=== PATIENT | female | born 1955 | race Asian ===

== ENCOUNTER 2024-12-03 06:33 | Inpatient (IN) | payer MEDICAID, OTHER ==
[~2024-12-03] VITALS: Ht 152.4 cm; Wt 51.1 kg
--- NOTE | 2024-12-03 07:28 | ED.PDOC ---
General HPI Comments 69 y/o F, with PMHx of kidney stones presents to the ED for CC of flank pain. Patient reports, she has been experiencing right sided flank pain with associated nausea and vomiting onset, this morning (12/03/24). Patient denies dysuria, hematuria, fever, chills, or urinary frequency. No other symptoms or modifying factors present at this time. Chief Complaint: Flank Pain Time Seen by MD: 07:30 Reviewed notes: Nurses Notes, Medications, Allergies Information Source: Patient Mode of Arrival: Ambulatory Severity: Moderate Inability to void: None Timing: Hours Duration: Since onset Prehospital treatment: None Onset: Spontaneous Symptoms: None History of: Kidney stone Location: (R) Flank Modifying factors: None associated signs and symptoms: Nausea, Vomiting, Flank Pain Past Medical History PAST MEDICAL HISTORY: Kidney Stones Surgical History: Denies all surgeries FRAME TRIMMER History: Denies all FRAME TRIMMER Hx Family History Family History: Unknown Social History Smoker: Non-Smoker Alcohol: Denies ETOH Use Drugs: Denies Drug Use Lives In: Home Constitutional: denies: chills, diaphoresis, fatigue, fever, malaise, sweats, weakness, others EENTM: denies: blurred vision, double vision, ear bleeding, ear discharge, ear drainage, ear pain, ear ringing, eye pain, eye redness, hearing loss, mouth pain, mouth swelling, nasal discharge, nose bleeding, nose congestion, nose pain, photophobia, tearing, throat pain, throat swelling, voice changes, others Respiratory: denies: cough, hemoptysis, orthopnea, SOB at rest, shortness of breath, SOB with excertion, stridor, wheezing, others Cardiovascular: denies: chest pain, dizzy spells, diaphoresis, Dyspnea on exertion, edema, irregular heart beat, left arm pain, lightheadedness, palpitations, PND, syncope, others Gastrointestinal: reports: nausea, vomiting; denies: abdomen distended, abdominal pain, blood streaked bowels, constipated, diarrhea, dysphagia, difficulty swallowing, hematemesis, melena, poor appetite, poor fluid intake, rectal bleeding, rectal pain, others Genitourinary: reports: flank pain; denies: abnormal vagina bleeding, burning, dyspareunia, dysuria, frequency, hematuria, incontinence, pain, , vagina discharge, urgency, others Neurological: denies: dizziness, fainting, headache, left sided numbness, left sided weakness, numbness, paresthesia, pre-existing deficit, right sided numbness, right sided weakness, seizure, speech problems, tingling, tremors, weakness, others Musculoskeletal: denies: back pain, gout, joint pain, joint swelling, muscle pain, muscle stiffness, neck pain, others Integumetry: denies: bruises, change in color, change in hair/nails, dryness, laceration, lesions, lumps, rash, wounds, others Allergic/Immunocompromised: denies: Difficulty Healing, Frequent Infections, Hives, Itching, others Hematologic/Lymphatic: denies: anemia, blood clots, easy bleeding, easy bruising, swollen glands, others Endocrine: denies: excessive hunger, excessive sweating, excessive thirst, excessive urination, flushing, intolerance to cold, intolerance to heat, unexplained weight gain, unexplained weight loss, others Psychiatric: denies: anxiety, bipolar disorder, depression, hopeless, panic disorder, schizophrenia, sleepless, suicidal, others All Other Systems: Reviewed and Negative Physical Exam General Appearance: Moderate Distress, Normal, Other (appears uncomfortable) HEENT: Normal ENT Inspection, Pharynx Normal Neck: Full Range of Motion, Non-Tender, Normal, Normal Inspection Respiratory: Chest Non-Tender, Lungs Clear, No Accessory Muscle Use, No Respiratory Distress, Normal Breath Sounds Cardiovascular: No Edema, No Murmur, No Gallop, Normal Peripheral Pulses, Regular Rate/Rhythm Breast Exam: Deferred Gastrointestinal: No Organomegaly, Non Tender, No Pulsatile Mass, Normal Bowel Sounds, Soft Genitalia: Deferred Pelvic: Deferred Rectal: Deferred Extremities: No calf tenderness, Normal capillary refill, Normal inspection, Normal range of motion, Non-tender, No pedal edema Musculoskeletal : Apperance: Normal Neurologic: Alert, route delivery manager II-XII nml as Tested, No Motor Deficits, Normal Affect, Normal Mood, No Sensory Deficits Cerebellar Function: Normal Reflexes: Normal Skin: Dry, Normal Color, Warm Lymphatic: No Adenopathy Was a procedure done? Was a procedure done?: No Differential Diagnosis Kidney stone (Female): Pyelonephritis, Urinary obstruction, Urolithiasis Kidney stone (Male): N/A Penile/Scrotal: N/A Urinary Problem (Male): N/A Urinary Problem (Female): UTI X-Ray, Labs, Meds, VS Vital Signs Date Time Temp Pulse Resp B/P (MAP) Pulse Ox O2 Delivery O2 Flow Rate FiO2 12/03/24 08:05 53 18 115/63 12/03/24 08:03 97.5 53 17 115/63 (80) 100 97.5 12/03/24 08:03 53 17 100 Room Air* 0 21 12/03/24 06:35 97.6 72 16 127/68 97 97.6 Lab Test 12/03/24 08:14 12/03/24 07:19 Range/Units Urine Color Light-yellow Yellow Urine Clarity Clear Clear Urine pH 5.0 5.0-9.0 Urine Specific [place] 1.019 1.001-1.035 Urine Protein Negative Negative Urine Ketones Negative Negative Urine Blood 2+ H Negative /uL Urine Nitrite Negative Negative Urine Bilirubin Negative Negative Urine Urobilinogen Normal Negative mg/dL Urine Leukocyte Esterase Trace Negative /uL Urine RBC 55 0 - 4 /hpf Urine Microscopic WBC 6 H 0-5 /HPF Urine Squamous Epithelial Cells Few <5 /hpf Urine Bacteria None seen None Seen /hpf Urine Mucus Few None Seen Urine Glucose Normal Normal mg/dL White Blood Count 6.3 4.4-10.8 10^3/uL Red Blood Count 4.16 4.0-5.20 10^6/uL Hemoglobin 12.5 12.2-16.2 g/dL Hematocrit 36.7 36.0-46.0 % Mean Corpuscular Volume 88.1 80.0-100.0 fL Mean Corpuscular Hemoglobin 29.9 28.0-32.0 pg Mean Corpuscular Hemoglobin Concent 34.0 32.0-36.0 g/dL Red Cell Distribution Width 12.9 11.8-14.3 % Platelet Count 169 140-450 10^3/uL Mean Platelet Volume 7.4 6.9-10.8 fL Neutrophils (%) (Auto) 73.2 37.0-80.0 % Lymphocytes (%) (Auto) 20.9 10.0-50.0 % Monocytes (%) (Auto) 4.6 0.0-12.0 % Eosinophils (%) (Auto) 0.8 0.0-7.0 % Basophils (%) (Auto) 0.5 0.0-2.0 % Neutrophils # (Auto) 4.6 1.6-8.6 10 ^3/uL Lymphocytes # (Auto) 1.3 0.4-5.4 10 ^3/uL Monocytes # (Auto) 0.3 0-1.3 10 ^3/uL Eosinophils # (Auto) 0.1 0-0.8 10 ^3/uL Basophils # (Auto) 0 0-0.2 10 ^3/uL Nucleated Red Blood Cells 0.0 % Sodium Level 144 136-145 mmol/L Potassium Level 3.7 3.5-5.1 mmol/L Chloride Level 109 H 98-107 mmol/L Carbon Dioxide Level 26 20-31 mmol/L Anion Gap 9 5-15 Blood Urea Nitrogen 15 9-23 mg/dL Creatinine 0.79 0.550-1.02 mg/dL Glomerular Filtration Rate Calc 82 >90 mL/min BUN/Creatinine Ratio 19.0 10.0-20.0 Serum Glucose 143 H 74-106 mg/dL Calcium Level 9.0 8.7-10.4 mg/dL Current Medications Medications (Trade) Dose Ordered Sig/Rico Route Start Time Stop Time Status Last Admin Sodium Chloride 1,000 ml @ 1,000 mls/hr Q1H ONCE IV 12/03/24 07:30 12/03/24 08:29 DC 12/03/24 08:03 Morphine Sulfate 4 mg ONCE ONCE IV 12/03/24 07:30 12/03/24 07:31 DC 12/03/24 08:05 Ondansetron HCl (Zofran) 4 mg ONCE ONCE IV 12/03/24 07:30 12/03/24 07:31 DC 12/03/24 08:05 Time of 1ST Reevaluation: 08:00 Reevaluation 1ST: Unchanged Patient Education/Counseling: Diagnosis, Treatment Family Education/Counseling: No Family Present SEPSIS Sepsis Screen Date sepsis recognized/suspect: Dec 03, 2024 Time Sepsis recognized/suspect: 0637 Recent Procedure: No On Antibiotic Therapy: No Respiratory Rate >20: No Heart Rate >90: No Temp<36 C (96.8 F) or >38.3 C: No SBP <90 or MAP <65 mmHG: No New Acute Mental Status Change: No Is the patient on CPAP, BIPAP,: No Physician Orders Ct Ab Pel Wo Con-No Oral Or Iv (12/03/24 10:09) Vital Signs Date Time Temp Pulse Resp B/P (MAP) Pulse Ox O2 Delivery O2 Flow Rate FiO2 12/03/24 08:05 53 18 115/63 12/03/24 08:03 97.5 53 17 115/63 (80) 100 97.5 12/03/24 08:03 53 17 100 Room Air* 0 21 12/03/24 06:35 97.6 72 16 127/68 97 97.6 Laboratory Tests Test 12/03/24 07:19 White Blood Count 6.3 10^3/uL (4.4-10.8) Medications Medications Dose Ordered Sig/Rico Route Start Time Stop Time Status Last Admin Dose Admin Morphine Sulfate 4 mg ONCE ONCE IV 12/03/24 07:30 12/03/24 07:31 DC 12/03/24 08:05 Ondansetron HCl 4 mg ONCE ONCE IV 12/03/24 07:30 12/03/24 07:31 DC 12/03/24 08:05 Sodium Chloride 1,000 ml @ 1,000 mls/hr Q1H ONCE IV 12/03/24 07:30 12/03/24 08:29 DC 12/03/24 08:03 Departure 1 Departure Time of Disposition: 11:29 (Patient presented with abdominal pain that was concerning for possible appendicits, gastritis, cholecystitis, colitis, gastroenteritis, sbo, or orther possible surgical emergency. Data: 1. I ordered and reviewed the result of at least 3 labs including a CBC, BMP, and Urinalysis. 2. I independently interpreted the following tests: CT Abdoment and Pelvis is concerning for renal colic .Risk:This patient has a high risk of morbidity due to further diagnostic testing or treatment and may suffer from an acute abdominal process disorder. Workup reveals renal colic and intractable abdominal pain and patient should be admitted for further workup. and possible expert consultation. ) Impression: Primary Impression: Renal colic Additional Impression: Intractable abdominal pain Disposition: ADMITTED INPATIENT Admit to: Med Surg Condition: Serious Critical Care Note Critical Care Time?: Yes Critical care comment: Intractable abdominal pain Authorized and Performed by: Marshall Talavera MD Total critical care time: Approximately 38 minutes Due to a high probability of clinically significant, life threatening deterioration, the patient required my highest level of preparedness to intervene emergently and I personally spent this critical care time directly and personally managing the patient. This critical care time included obtaining a history; examining the patient; pulse oximetry; ordering and review of studies; arranging urgent treatment with development of a management plan; evaluation of patient's response to treatment; frequent reassessment; and, discussions with other providers. This critical care time was performed to assess and manage the high probability of imminent, life-threatening deterioration that could result in multi-organ failure. It was exclusive of separately billable procedures and treating other patients and teaching time. Please see my other sections and the rest of the note for further information on patient assessment and treatment. Stability Stability form required: No Heart Score Heart Score: Heart Score Response (Comments) Value History N/A 0 EKG N/A 0 Age N/A 0 Risk Factors N/A 0 Troponin N/A 0 Total 0 I personally scribed for MARSHALL TALAVERA MD ([email or web address]) on 12/03/24 at 07:28. Electronically submitted by Alina Del Castillo ([email or web address]). MARSHALL TALAVERA MD Dec 03, 2024 07:28
[2024-12-03 07:34] LABS: Hematocrit 36.7 % (36.0-46.0); Hemoglobin 12.5 g/dL (12.2-16.2); Mean Corpuscular Hemoglobin 29.9 pg (28.0-32.0); Mean Corpuscular Volume 88.1 fL (80.0-100.0); Nucleated Red Blood Cells % 0.0 %
[2024-12-03 07:43] LABS: Potassium 3.7 mmol/L (3.5-5.1); Sodium 144 mmol/L (136-145)
[2024-12-03 07:44] LABS: Anion Gap 9 (5-15); Carbon Dioxide 26 mmol/L (20-31)
[2024-12-03 07:45] LABS: Calcium 9.0 mg/dL (8.7-10.4)
[2024-12-03 07:49] LABS: BUN/Creatinine Ratio 19.0 (10.0-20.0); Blood Urea Nitrogen 15 mg/dL (9-23)
[2024-12-03 07:51] LABS: Chloride 109 mmol/L (98-107); Glucose 143 mg/dL (74-106)
[2024-12-03 08:03] VITALS: PULSE 53; RESP 17; O2SAT 100
[2024-12-03] MEDS: SODIUM CHLORIDE 0.9% 1,000 ML IV ONE (08:03)
[2024-12-03] MEDS: MORPHINE SULFATE 4 MG/ML SYR/VIAL IV ONE (08:05)
[2024-12-03] MEDS: ONDANSETRON HCL 4 MG/2 ML VIAL IV ONE (08:05)
[2024-12-03 09:20] LABS: Urine Protein, UAD Negative (Negative)
--- NOTE | 2024-12-03 11:21 | DVH ---
CT CT AB PEL WO CON-NO ORAL OR IV INDICATION: abdominal pain, hematuria EXAM DATE: 12/03/2024 10:12 AM COMPARISON: None RADIATION DOSE: CTDIvol: 7.14 mGy, DLP: 392.06 mGy*cm PROCEDURE: Helical CT images were obtained of the abdomen and pelvis without IV contrast Sagittal and coronal reconstructions are provided. ORAL CONTRAST: None. ADDITIONAL IMAGES / REFORMATS: None All C T scans at this medical facility are performed using dose modulation techniques as appropriate to a p erformed exam including the following: Automated exposure control was utilized; adjustment of the MA and/or KV according to patient size; and use of iterative reconstruction technique. FINDINGS: LUNG BASE: Normal. LIVER: Normal. GALLBLADDER AND BILIARY TREE: No calcified gallstones. Normal caliber wall. No intra- or extrahepatic biliary ductal dilation. PANCREAS: Normal. SPLEEN: Normal. BOWEL: Normal. Normal appendix. ADRENALS: Normal. KIDNEYS AND URETER: 3 mm right UVJ stone with mild right hydronephrosis. BLADDER: Normal. REPRODUCTIVE ORGANS: Ring foreign body inside the uterus. LYMPH NODES:No lymphadenopathy. PERITONEUM: No ascites or free air. No other fluid collection. VESSELS: Scattered atherosclerotic calcifications are noted. RETROPERITONEUM: Normal. ABDOMINAL WALL: Normal. BONES: Scattered osseous degenerative changes are noted. IMPRESSION: 3 mm right UVJ stone with mild right hydronephrosis. Ring foreign body inside the uterus could be an IUD
[2024-12-03] MEDS ORDERED: KETOROLAC TROMETH 30 MG/ML 1ML VIAL IV ONE (11:30)
[2024-12-03] MEDS ORDERED: TAMSULOSIN HYDROCHLORIDE 0.4 MG CAP PO ONE (11:30)
[2024-12-03] MEDS ORDERED: HYDROcodone-ACET 5/325MG TAB PO PRN (12:30)
[2024-12-03] MEDS ORDERED: SODIUM CHLORIDE 0.9% 1,000 ML IV ONE (12:30)
[2024-12-03] MEDS ORDERED: ACETAMINOPHEN 325 MG TAB PO PRN (12:30)
[2024-12-03] MEDS ORDERED: ONDANSETRON HCL 4 MG/2 ML VIAL IV PRN (12:30)
[2024-12-03] MEDS ORDERED: KETOROLAC TROMETH 30 MG/ML 1ML VIAL IV PRN (12:30)
[2024-12-03] MEDS ORDERED: SODIUM CHLORIDE 0.9% 1,000 ML IV SCH (12:30)
[2024-12-03] MEDS ORDERED: DOCUSATE SOD 100 MG CAP PO PRN (12:30)
--- NOTE | 2024-12-03 12:43 | DVHHP2 ---
History of Present Illness Reason for Visit: Abdominal pain History of Present Illness Marcus Espinal is a 69-year-old female with no significant past medical history who came to the hospital with complaints of abdominal pain that radiates to her right flank. Patient states the pain began this morning about 0600 with associated nausea and vomiting. She states she had pain like this about 20 years ago. Past Surgical History: None Smoke: No ALCOHOL: none Drugs: None Lives: with Family Domestic Violence: Neg Review of Systems Constitutional: No: Fever, Chills, Sweats, Weakness, Malaise, Other Eyes: No: Pain, Vision change, Conjunctivae inflammation, Eyelid inflammation, Other, Redness ENT: No: Ear pain, Ear discharge, Nose pain, Nose discharge, Nose congestion, Mouth pain, Mouth swelling, Throat pain, Throat swelling, Other Respiratory: No: Cough, Dry, Shortness of breath, SOB with excertion, Wheezing, Hemoptysis, Pleuritic Pain, Sputum, Wheezing, Other Cardiovascular: No: Chest Pain, Palpitations, Orthopnea, Paroxysmal Noc. Dyspnea, Edema, Lt Headedness, Other Gastrointestinal: Nausea, Abdominal Pain; No: Vomiting, Diarrhea, Constipation, Melena, Hematochezia, Other Genitourinary: No Dysuria, No Frequency, No Incontinence, No Hematuria, No Retention, No Other Musculoskeletal: back pain (right flank); No: other, neck pain, shoulder pain, arm pain, hand pain, leg pain, foot pain Skin: No: Rash, Lesions, Jaundice, Bruising, Other Neurological: No: Weakness, Numbness, Incoordination, Change in speech, Confusion, Seizures, Other Allergies: Coded Allergies: No Known Drug Allergy (Verified Allergy, Unknown, 12/03/24) Exam Vital Signs Vital Signs Date Time Temp Pulse Resp B/P (MAP) Pulse Ox O2 Delivery O2 Flow Rate FiO2 12/03/24 08:05 53 18 115/63 12/03/24 08:03 97.5 100 97.5 12/03/24 08:03 Room Air* 0 21 General Appearance: Alert, Oriented X3, Cooperative, mild distress HEENT: Atraumatic, PERRLA Respiratory: Clear to auscultation, Normal air movement Cardiovascular: Regular rate, Normal S1, Normal S2, No murmurs Abdominal: Normal bowel sounds, Soft, No tenderness, No hepatospenomegaly Extremities: No clubbing, No cyanosis, No edema, Normal pulses Skin: No rashes, No breakdown, No significant lesion Neuro: Normal gait, Normal speech, Strength at 5/5 X4 ext Psych/Mental Status: Mental status NL, Mood NL Labs/Xrays Labs Test 12/03/24 08:14 12/03/24 07:19 Range/Units Urine Color Light-yellow Yellow Urine Clarity Clear Clear Urine pH 5.0 5.0-9.0 Urine Specific [place] 1.019 1.001-1.035 Urine Protein Negative Negative Urine Ketones Negative Negative Urine Blood 2+ H Negative /uL Urine Nitrite Negative Negative Urine Bilirubin Negative Negative Urine Urobilinogen Normal Negative mg/dL Urine Leukocyte Esterase Trace Negative /uL Urine RBC 55 0 - 4 /hpf Urine Microscopic WBC 6 H 0-5 /HPF Urine Squamous Epithelial Cells Few <5 /hpf Urine Bacteria None seen None Seen /hpf Urine Mucus Few None Seen Urine Glucose Normal Normal mg/dL White Blood Count 6.3 4.4-10.8 10^3/uL Red Blood Count 4.16 4.0-5.20 10^6/uL Hemoglobin 12.5 12.2-16.2 g/dL Hematocrit 36.7 36.0-46.0 % Mean Corpuscular Volume 88.1 80.0-100.0 fL Mean Corpuscular Hemoglobin 29.9 28.0-32.0 pg Mean Corpuscular Hemoglobin Concent 34.0 32.0-36.0 g/dL Red Cell Distribution Width 12.9 11.8-14.3 % Platelet Count 169 140-450 10^3/uL Mean Platelet Volume 7.4 6.9-10.8 fL Neutrophils (%) (Auto) 73.2 37.0-80.0 % Lymphocytes (%) (Auto) 20.9 10.0-50.0 % Monocytes (%) (Auto) 4.6 0.0-12.0 % Eosinophils (%) (Auto) 0.8 0.0-7.0 % Basophils (%) (Auto) 0.5 0.0-2.0 % Neutrophils # (Auto) 4.6 1.6-8.6 10 ^3/uL Lymphocytes # (Auto) 1.3 0.4-5.4 10 ^3/uL Monocytes # (Auto) 0.3 0-1.3 10 ^3/uL Eosinophils # (Auto) 0.1 0-0.8 10 ^3/uL Basophils # (Auto) 0 0-0.2 10 ^3/uL Nucleated Red Blood Cells 0.0 % Sodium Level 144 136-145 mmol/L Potassium Level 3.7 3.5-5.1 mmol/L Chloride Level 109 H 98-107 mmol/L Carbon Dioxide Level 26 20-31 mmol/L Anion Gap 9 5-15 Blood Urea Nitrogen 15 9-23 mg/dL Creatinine 0.79 0.550-1.02 mg/dL Glomerular Filtration Rate Calc 82 >90 mL/min BUN/Creatinine Ratio 19.0 10.0-20.0 Serum Glucose 143 H 74-106 mg/dL Calcium Level 9.0 8.7-10.4 mg/dL CT CT AB PEL WO CON-NO ORAL OR IV FINDINGS: LUNG BASE: Normal. LIVER: Normal. GALLBLADDER AND BILIARY TREE: No calcified gallstones. Normal caliber wall. No intra- or extrahepatic biliary ductal dilation. PANCREAS: Normal. SPLEEN: Normal. BOWEL: Normal. Normal appendix. ADRENALS: Normal. KIDNEYS AND URETER: 3 mm right UVJ stone with mild right hydronephrosis. BLADDER: Normal. REPRODUCTIVE ORGANS: Ring foreign body inside the uterus. LYMPH NODES:No lymphadenopathy. PERITONEUM: No ascites or free air. No other fluid collection. VESSELS: Scattered atherosclerotic calcifications are noted. RETROPERITONEUM: Normal. ABDOMINAL WALL: Normal. BONES: Scattered osseous degenerative changes are noted. IMPRESSION: 3 mm right UVJ stone with mild right hydronephrosis. Ring foreign body inside the uterus could be an IUD SEPSIS Sepsis Screen Date sepsis recognized/suspect: Dec 03, 2024 Time Sepsis recognized/suspect: 0804 Recent Procedure: No On Antibiotic Therapy: No Respiratory Rate >20: No Heart Rate >90: No Temp<36 C (96.8 F) or >38.3 C: No SBP <90 or MAP <65 mmHG: No New Acute Mental Status Change: No Is the patient on CPAP, BIPAP,: No Physician Orders Ct Ab Pel Wo Con-No Oral Or Iv (12/03/24 10:09) Tamsulosin Hydrochloride (Flomax) (12/03/24 11:30) Ketorolac Injection (Toradol Injection) (12/03/24 11:30) * Urology Consult (12/03/24 11:28) Admit (12/03/24 12:29) Code Status (12/03/24 12:29) 0.9% Ns 1000 Ml (12/03/24 12:30) Hydrocodone-Acet 5/325mg Tab ([place] /32 (12/03/24 12:30) Ondansetron Hcl (Zofran) (12/03/24 12:30) Docusate Sodium Capsule (Colace Capsule) (12/03/24 12:30) Complete Blood Count (12/04/24 04:00) Comprehensive Metabolic Panel (12/04/24 04:00) Condition: Serious (12/03/24 12:29) Acetaminophen Tablet (Tylenol Tablet) (12/03/24 12:30) Tamsulosin Hydrochloride (Flomax) (12/03/24 18:00) NS (12/03/24 12:30) Strain All Urine For Stones (12/03/24 12:29) Ketorolac Injection (Toradol Injection) (12/03/24 12:30) Vital Signs Date Time Temp Pulse Resp B/P (MAP) Pulse Ox O2 Delivery O2 Flow Rate FiO2 12/03/24 08:05 53 18 115/63 12/03/24 08:03 97.5 53 17 115/63 (80) 100 97.5 12/03/24 08:03 53 17 100 Room Air* 0 21 12/03/24 06:35 97.6 72 16 127/68 97 97.6 Laboratory Tests Test 12/03/24 07:19 White Blood Count 6.3 10^3/uL (4.4-10.8) Medications Medications Dose Ordered Sig/Rico Route Start Time Stop Time Status Last Admin Dose Admin Morphine Sulfate 4 mg ONCE ONCE IV 12/03/24 07:30 12/03/24 07:31 DC 12/03/24 08:05 4 MG Ondansetron HCl 4 mg ONCE ONCE IV 12/03/24 07:30 12/03/24 07:31 DC 12/03/24 08:05 4 MG Sodium Chloride 1,000 ml @ 1,000 mls/hr Q1H ONCE IV 12/03/24 07:30 12/03/24 08:29 DC 12/03/24 08:03 1,000 MLS/HR Assessment/Plan Assessment/Plan Assessment: Renal calculi, Right hydronephrosis, Intractable abdominal pain, Plan: Admit to Med-Surg, Urology consult, Start Flomax, IV hydration, Strain all urine, Pain management, Antiemetics, Plan discussed with: Patient My Orders Orders - RICHIE GERMAN Procedure Category Date Status Time Admit ADMIT 12/03/24 Verified 12:29 Code Status CODE 12/03/24 Verified 12:29 0.9% Ns 1000 Ml PHA 12/03/24 Verified 12:30 Hydrocodone-Acet PHA 12/03/24 Verified 5/325mg Tab ([place] 12:30 Ondansetron Hcl PHA 12/03/24 Verified (Zofran) 12:30 Docusate Sodium PHA 12/03/24 Verified Capsule (Colace 12:30 Complete Blood Count LAB 12/04/24 Verified 04:00 Comprehensive LAB 12/04/24 Verified Metabolic Panel 04:00 Condition: Serious LYNN 12/03/24 Verified 12:29 Acetaminophen Tablet PHA 12/03/24 Verified (Tylenol Tablet) 12:30 Tamsulosin PHA 12/03/24 Verified Hydrochloride (Flomax) 18:00 NS PHA 12/03/24 Verified 12:30 Strain All Urine For LYNN 12/03/24 Verified Stones 12:29 Ketorolac Injection PHA 12/03/24 Verified (Toradol Injection) 12:30 Date of Service: Dec 03, 2024 Billing Provider: RICHIE GERMAN Common Visit Codes: [id number] INP/OBS CARE (MOD) RICHIE GERMAN Dec 03, 2024 12:43
[2024-12-03] MEDS ORDERED: METOCLOPRAMIDE HCL 5MG/ml INJ 2ml VIAL IV PRN (12:45)
[2024-12-03 14:48] VITALS: BP 109/76; PULSE 52; RESP 16; TEMP 97.5; O2SAT 97
[2024-12-03] MEDS ORDERED: TAMSULOSIN HYDROCHLORIDE 0.4 MG CAP PO SCH (18:00)
== END 2024-12-03 18:00 | disposition left against medical advice (07) | DRG 465 ==
LOC: ER 06:33 → OVERFLOW 12:29
PROVIDERS: ADMIT Nurse Practitioner Family; ATTEND Nurse Practitioner Family
DX: N13.2 Hydronephrosis with renal and ureteral calculous obstruction (principal); Z87.442 Personal history of urinary calculi
CPT/HCPCS: 36415; 74176; 80048; 81001; 85025; 96361; 96374; 96375; 99291; G0378; J2405